=== PATIENT | female | born 1950 | race Caucasian/White ===

== ENCOUNTER 2023-03-08 08:06 | Emergency (ER) | payer MEDICARE, MEDICAID, SELFPAY ==
[2023-03-08 08:55] VITALS: BP 184/110; PULSE 109; RESP 18; TEMP 36.7; O2SAT 97
--- NOTE | 2023-03-08 09:09 | ED_ITS ---
HPI - Anxiety General: Chief Complaint: Anxiety Stated Complaint: genevieve espinosa Time Seen by Provider: 03/08/23 08:22 Source: patient Mode of arrival: ambulatory History of Present Illness: 72-year-old female presents emergency ro om awake alert and oriented states she was breathing rapidly had some nausea and vomited once earlier this morning some mild chest comfort all the symptoms have mostly resolved she just has a little bit of residual dizziness now. When she initially was seen by the triage nurse reported to be hyperventilating. Later she was drinking coffee and waiting room without any difficulty. She has no fever sweats chills. Prior to this episode she has not had any productive cough or chest discomfort. MD complaint: anxiety Symptoms: dyspnea, palpitations, extremity numbness/tingling, perioral numbness/tingling and sense of impending doom Place: home Relieving factors: nothing Exacerbating factors: nothing Associated symptoms: Reports nausea; Deny anorexia, chest pain, chills, confusion, diaphoresis, fever(s), h eadache(s), malaise, palpitations, short of breath, syncope, vomiting or weakness Review of Systems Const: Denies: fever(s), chills, malaise or diaphoresis Card: Denies: chest pain, palpitations or syncope Resp: Denies: dyspnea GI: Reports: nausea; Denies: abdominal pain or vomiting : Denies: dysuria, urinary frequency or urinary urgency Musc: Denies: neck pain or back pain Skin/Breast: Denies: rash Neuro: Denies: headache(s) or confusion Physical Exam Const: COMMON NORMALS: no acute distress GENERAL APPEARANCE: cooperative and comfortable ORIENTATION/CONSCIOUSNESS: Yes awake, Yes oriented to person, Yes oriented to place and Yes oriented to time HENMT: COMMON NORMALS: normocephalic, atraumatic and hearing grossly normal bilaterally HEAD & SCALP: normocephalic and atraumatic Resp: COMMON NORMALS: normal respiratory effort, No retractions, No use of accessory muscles and clear to auscultation bilaterally AUSCULTATION: clear to auscultation bilaterally Cardio: COMMON NORMALS: regular rate, regular rhythm and No murmurs present (Cardio) RATE: regular rate RHYTHM: regular rhythm GI: COMMON NORMALS: Soft to palpation and No hepatosplenomegaly present AUSCULTATION: Yes normoactive bowel sounds PALPATION: Yes Soft to palpation, No Tenderness to palpation present (GI), No Guarding due to palpation present (GI) and Yes No hepatosplenomegaly present Extremity: COMMON NORMALS: normal to inspection, capillary refill normal, no clubbing, cyanosis or edema, no calf tenderness and no pedal edema Neuro: SENSORIUM/ORIENTATION: Yes oriented to person, Yes oriented to place and Yes oriented to time Skin: COMMON NORMALS: no rashes or lesions noted GENERAL SKIN EXAM: no rashes or lesions noted Course Vital Signs: Vital signs: Vital Signs Temperature 98.1 F 03/08/23 08:55 Pulse Rate 109 H 03/08/23 08:55 Respiratory Rate 18 03/08/23 08:55 Blood Pressure 158/102 03/08/23 09:18 Pulse Oximetry 97 03/08/23 08:55 Oxygen Delivery Me thod Room Air 03/08/23 08:55 MDM - Anxiety Medical Decision Making Exam unremarkable. Blood pressure slightly elevated. Will discharge patient home her symptoms are resolved at this point. Return if she has further episodes. Medical Records I reviewed the patient's medical records. Lab Data I reviewed the patient's lab results. Laboratory Results Specimen Type Arterial 03/08/23 09:21 Sample Site Brachial, left 03/08/23 09:21 ABG pH 7.42 (7.35-7.45) 03/08/23 09:21 ABG pCO2 38.5 mmHg (35-45) 03/08/23 09:21 ABG pO2 74.4 mmHg (80.0-100.0) L 03/08/23 09:21 ABG PO2/FiO2 Ratio 0 03/08/23 09:21 ABG HCO3 25.0 mmol/L (22-26) 03/08/23 09:21 ABG O2 Saturation 96.4 03/08/23 09:21 ABG Base Excess 0.6 mmol/L (-2.0-2.0) 03/08/23 09:21 Rajinder Test N/a 03/08/23 09:21 A-a O2 Gradient 3.5 mmHg (5-10) L 03/08/23 09:21 Hematocrit 39.9 % (37-47) 03/08/23 09:21 Hgb O2 Saturation 95.4 % (95-100) 03/08/23 09:21 Carboxyhemoglobin 0.7 %THgb (0.4-20.1) 03/08/23 09:21 Methemoglobin 0.3 % (0.4-1.5) L 03/08/23 09:21 Total Hemoglobin 13.0 g/dL (12-16) 03/08/23 09:21 Sodium 142.0 mmol/L (131-143) 03/08/23 09:21 Potassium 3.8 mmol/L (3.5-5.0) 03/08/23 09:21 Glucose 110.0 mg/dL (70-115) 03/08/23 09:21 Ionized Calcium 1.2 mmol/L (1.1-1.4) 03/08/23 09:21 O2 Delivery Device Room air 03/08/23 09:21 FiO2 21.0 % 03/08/23 09:21 Vocal Music Teacher ID [facility] 03/08/23 09:21 No radiology studies performed this visit Discharge Plan Discharge Patient Disposition: Home Clinical Impression: Acute anxiety, Hypertension Condition: Stable Prescriptions: New amlodipine 2.5 mg tablet 2.5 mg PO DAILY Qty: 30 0RF No Action Vitamin C 500 mg Tablet 500 mg PO DAILY PRN (Reason: Cold Symptoms) Discharge Orders: Discharge ED (Routine); Ordered 03/08/23 Ordered By: Héctor Ruby Referrals: Tong Merrill MD [Family Provider] - Discharge Diet: Usual diet Discharge Activity: Resume usual activity Patient Instructions: Opioid Safety, Pain Management Activity Restrictions/Additional Instructions: Thank you for choosing [facility] for your healthcare needs today. Please realize this is an emergency room and that we are providing you with a medical screening exam and this may not be complete and all inclusive of all the testing and or work up that you may need to determine your ailment or severity of your illness. It is very important that you follow up as instructed or that you return to the Emergency Department should you have concerns or if your condition changes or worsens in any way. You were seen today after what appears to have been a mild panic attack which you self corrected. Your blood pressure was mildly elevated recommend you start on amlodipine 2.5 mg daily and follow-up with your primary care doctor within the next week. Coding Level of Care Code ED Hogshead Stripper for Gretel Sawyer
[2023-03-08 09:18] VITALS: BP 158/102
--- NOTE | 2023-03-08 09:24 | PC.PHAR ---
pt and pts states the pt takes no prescription medications states just takes vit c prn and states not taken recently
[2023-03-08 09:32] LABS: ABG PCO2 38.5 mmHg (35-45); ABG PH Result 7.42 (7.35-7.45); Alveolar-Arterial Oxygen Gradi 3.5 mmHg (5-10); Arterial Blood Gas Hematocrit 39.9 % (37-47); Base Excess ABG 0.6 mmol/L (-2.0-2.0); Blood Gas Operator Identificat AMH; Blood Gas Sample Site Brachial, left; Blood Gas Sample Type Arterial; Carboxyhemoglobin 0.7 %THgb (0.4-20.1); HGB O2 Sat 95.4 % (95-100); Ionized Calcium Level - ABG 1.2 mmol/L (1.1-1.4); Methemoglobin 0.3 % (0.4-1.5); Oxygen Device ROOM AIR; Oxygen Saturation ABG 96.4; PO2 ABG 74.4 mmHg (80.0-100.0); PO2 FiO2 Ratio Arterial Blood 0; Potassium Level - ABG 3.8 mmol/L (3.5-5.0)
== END 2023-03-08 10:19 | disposition home or self-care (01) ==
PROVIDERS: Emergency Provider Family Medicine
DX: F41.9 Anxiety disorder, unspecified (principal); I10 Essential (primary) hypertension
CPT/HCPCS: 36600; 80051; 82330; 82805; 99283

== ENCOUNTER 2023-06-25 11:21 | Inpatient (IN) | payer MEDICARE, MEDICAID, SELFPAY ==
[2023-06-25] VITALS (15 sets, daily range): BP systolic 125–141; BP diastolic 72–99; PULSE 87–117; RESP 16–22; TEMP 37.3–37.8; O2SAT 92–99; BMI 13.7
--- NOTE | 2023-06-25 11:33 | XR_ITS ---
WS: [id number] Exam: XR chest 1V portable [id number] Date/Time of Exam: 06/25/2023 11:36 AM Reason For Exam: fever No priors. The lungs are clear and fully inflated. Normal cardiomediastinal silhouette. No pleural effusions. Re gional bony elements are intact. Monitoring leads superimpose the chest. 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 Old proximal LEFT humeral fracture. IMPRESSION: 1. No acute cardiopulmonary finding.
--- NOTE | 2023-06-25 11:33 | CT_ITS ---
WS: [id number] CT ABDOMEN PELVIS TECHNIQUE: Contrast-enhanced CT of the abdomen and pelvis with coronal and sagittal reformatted image s. CLINICAL INFORMATION: fever COMPARISON: None. DLP: 360.[address] scans at [facility] use at least one of these dose optimization techniques: automated e xposure control; mA and/or kV adjustment per patient size (includes targeted exams where dose is matc hed to clinical indication); or iterative reconstruction. FINDINGS: Diffuse marked thickening with submucosal enhancement and induration involving the colon compatible w ith infectious or inflammatory colitis. This is more pronounced involving the transverse colon and RI GHT colon extending into the cecum with prominent submucosal edema. This extends to involve the dista l sigmoid and rectum. Surrounding induration in the anterior abdominal mesentery and RIGHT abdomen. N o pneumatosis or free air. No evidence of high-grade obstruction. Normal liver. Normal gallbladder. Normal portal vein and splenic vein. Normal pancreatic parenchymal enhancement. Normal spleen. Normal GE junction. Slight bibasilar atelectasis. Adrenal glands are norm al. No hydronephrosis. Bilateral renal cysts. Normal pancreatic parenchymal enhancement. Normal calib er abdominal aorta. Mild aortic calcification. Celiac and SMA appear patent. Normal portal vein and s plenic vein. Disc space narrowing worse at L5-S1. Tiny fat-containing umbilical hernia. IMPRESSION: 1. Findings of diffuse pancolitis described above worse involving the cecum and RIGHT colon and rebolledo sverse colon. Consider C. difficile colitis. Recommend follow-up to resolution. 2. No pneumatosis or free air. 3. No evidence of high-grade obstruction. 4. No other acute findings. Notified Leno Núñez MD at 06/25/2023 1:17 PM.
--- NOTE | 2023-06-25 11:35 | ECG_ITS ---
[facility] Test Date: 2023-06-25 Pat Name: Argentina Weber Department: Room: Gender: Female Student Services Vice President: : 1950 Requested By: Leno Núñez Order Number: [id number] Nimco MD: Sonia Nance M.D. Measurements Intervals [place] Rate: 104 P: 67 ND: 153 QRS: 54 QRSD: 85 T: 47 QT: 322 QTc: 425 Interpretive Statements SINUS TACHYCARDIA POSSIBLE LEFT ATRIAL ENLARGEMENT [-0.1mV P-WAVE IN V1/V2] ABNORMAL RHYTHM ECG No previous ECG available for comparison Electronically Signed On 06-25-2023 23:55:20 CDT by Sonia Nance M.D. [email or web address]
--- NOTE | 2023-06-25 11:38 | W.ED.GENADLT ---
HPI - General Adult General: Chief complaint: Nausea/Vomiting/Diarrhea Stated complaint: Hurting all over Time Seen by Provider: 06/25/23 11:22 Source: patient Mode of arrival: ambulatory Limitations: no limitations History of Present Illness: 73-year-old female states that over the last week she been having nausea and vomiting she been having some diffuse abdominal pain as well and feeling weak. States she is also had bodyaches with a subjective fever at home as well. Has had a cough denies any shortness of breath she had some mild abdominal cramping. She denies any worsening proving factors. Associated symptoms: Reports nausea and vomiting; Deny chest pain, dyspnea, headache(s) or rash Review of Systems Const: Reports: fever(s), chills, body aches and fatigue; Denies: change in appetite Eyes: Denies: blurry vision or eye discomfort ENMT: Denies: throat pain or dental pain Card: Denies: chest pain Resp: Reports: non-productive cough; Denies: dyspnea GI: Reports: abdominal pain, nausea, vomiting and diarrhea : Denies: dysuria Musc: Denies: neck pain or back pain Skin/Breast: Denies: rash Neuro: Denies: headache(s) Physical Exam Const: COMMON NORMALS: patient oriented x3 HENMT: COMMON NORMALS: normocephalic and atraumatic HEAD & SCALP: normocephalic and atraumatic Eye: COMMON NORMALS: Equal, round and reactive pupils present and EOMs intact bilaterally PUPIL: Yes Equal, round and reactive pupils present Neck/C-Spine: COMMON NORMALS: full ROM and supple Chest: COMMONS NORMALS: normal inspection of the chest Resp: COMMON NORMALS: normal respiratory effort Cardio: COMMON NORMALS: regular rate, regular rhythm and No murmurs present (Cardio) RATE: regular rate RHYTHM: regular rhythm GI: COMMON NORMALS: Normal to inspection, nondistended, normoactive bowel sounds present, Soft to palpation, non-tender and no masses PALPATION: Yes Soft to palpation Extremity: COMMON NORMALS: normal to inspection and full ROM Neuro: COMMON NORMALS: patient oriented x3, moves all extremities and no focal motor deficits Psych: COMMON NORMALS: mental status grossly normal, Normal thought process present and cooperative THOUGHT PROCESS: Normal thought process present Skin: COMMON NORMALS: no rashes or lesions noted and no wounds GENERAL SKIN EXAM: no rashes or lesions noted Course Vital Signs: Vital signs: Vital Signs Temperature 100.0 F H 06/25/23 11:23 Pulse Rate 117 H 06/25/23 11:30 Respiratory Rate 19 H 06/25/23 11:30 Blood Pressure 130/77 06/25/23 12:00 Pulse Oximetry 95 06/25/23 11:30 Oxygen Delivery Me thod Room Air 06/25/23 11:23 MDM - General Adult Medical Decision Making Patient presents here with vomiting diarrhea along with generalized weakness CT shows a colitis she has a mild white count and fever here lactates normal we will admit her for IV fluids on antibiotics. Medical Records I reviewed the patient's medical records. Lab Data I reviewed the patient's lab results. 06/25/23 11:30 06/25/23 11:30 Laboratory Results WBC 12.67 10^3/uL (3.29-11.43) H 06/25/23 11:30 RBC 4.03 10^6/uL (3.85-5.65) 06/25/23 11:30 Hgb 12.00 g/dL (11.27-16.99) 06/25/23 11:30 Hct 36.2 % (36-47) 06/25/23 11:30 MCV 89.8 fl (85-98) 06/25/23 11:30 MCH 29.8 pg (27-33) 06/25/23 11:30 MCHC 33.1 g/dL (30-55) 06/25/23 11:30 RDW 12.9 % (12.1-15.1) 06/25/23 11:30 Plt Count 219 10^3/cmm (157-399) 06/25/23 11:30 MPV 9.3 fL (7.4-10.4) 06/25/23 11:30 Neut % (Auto) 91.8 % 06/25/23 11:30 Lymph % (Auto) 3.1 % 06/25/23 11:30 [place] % (Auto) 4.3 % 06/25/23 11:30 Eos % (Auto) 0.2 % 06/25/23 11:30 Baso % (Auto) 0.3 % 06/25/23 11:30 Neut # (Auto) 11.64 10^3/uL (1.8-7.7) H 06/25/23 11:30 Lymph # (Auto) 0.4 10^3/uL (0.8-4.8) L 06/25/23 11:30 [place] # (Auto) 0.5 10^3/uL (0.2-0.9) 06/25/23 11:30 Eos # (Auto) 0.0 10^3/uL (0.0-0.8) 06/25/23 11:30 Baso # (Auto) 0.0 10^3/uL (0.0-0.1) 06/25/23 11:30 Nucleated RBC % (auto) 0 % 06/25/23 11:30 Nucleated RBCs # 0.0 /100WBC 06/25/23 11:30 Sodium 138 mmol/L (136-145) 06/25/23 11:30 Potassium 4.1 mmol/L (3.5-5.1) 06/25/23 11:30 Chloride 104 mmol/L (98-107) 06/25/23 11:30 Carbon Dioxide 24 mmol/L (22-29) 06/25/23 11:30 Anion Gap 14.1 (5-19) 06/25/23 11:30 BUN 7 mg/dL (8-23) L 06/25/23 11:30 Creatinine 0.6 mg/dL (0.5-0.9) 06/25/23 11:30 GFR Calculation Not Reportable 06/25/23 11:30 Glucose 101 mg/dL (65-115) 06/25/23 11:30 Calculated Osmolality 284 mOsm/kg (285-295) L 06/25/23 11:30 Lactic Acid 0.8 mmol/L (0.5-2.2) 06/25/23 11:30 Calcium 8.6 mg/dL (8.5-10.5) 06/25/23 11:30 Magnesium 1.7 mg/dL (1.7-2.3) 06/25/23 11:30 Total Bilirubin 0.3 mg/dL (0.15-1.2) 06/25/23 11:30 AST 17 U/L (0-32) 06/25/23 11:30 ALT 9 U/L (0-33) 06/25/23 11:30 Alkaline Phosphatase 43 U/L (35-105) 06/25/23 11:30 Total Protein 7.3 g/dL (6.6-8.7) 06/25/23 11:30 Albumin 3.7 g/dL (3.5-5.2) 06/25/23 11:30 Globulin 3.6 g/dL (1.3-4.6) 06/25/23 11:30 Urine Color Yellow (Yellow) 06/25/23 12:00 Urine Appearance Sl hazy (CLEAR) A 06/25/23 12:00 Urine pH 5 (5-7) 06/25/23 12:00 Ur Specific [place] 1.020 (1.005-1.030) 06/25/23 12:00 Urine Protein Neg (Negative) 06/25/23 12:00 Urine Glucose (UA) Norm (Normal) 06/25/23 12:00 Urine Ketones 1+ (Negative) H 06/25/23 12:00 Urine Blood Neg (Negative) 06/25/23 12:00 Urine Nitrate Negative (Negative) 06/25/23 12:00 Urine Bilirubin Neg (Negative) 06/25/23 12:00 Urine Urobilinogen Norm mg/dL (Negative) 06/25/23 12:00 Ur Leukocyte Esterase 2+ (Negative) H 06/25/23 12:00 Urine RBC 0-4 /hpf (0-2) H 06/25/23 12:00 Urine WBC 15-25 /hpf (0-5) H 06/25/23 12:00 Ur Squamous Epith Cells 0-4 /hpf (0-5) H 06/25/23 12:00 Calcium Oxalate Crystal 0-4 /hpf H 06/25/23 12:00 Amorphous Sediment Not Reportable 06/25/23 12:00 Urine Bacteria Trace /hpf (NONE) 06/25/23 12:00 Urine Mucus 1+ /hpf 06/25/23 12:00 Influenza Type A Ag negative (Negative) 06/25/23 11:41 Influenza Type B Ag negative (Negative) 06/25/23 11:41 SARS-CoV-2 Ag (Rapid) negative (Negative) 06/25/23 11:41 All radiology interpretation(s) finalized by discharge EKG Data EKG 1: I personally reviewed and interpreted this EKG as follows: EKG interpretation date: 06/25/23 EKG interpretation time: 12:13 Interpretation: sinus tach hr104 no st or t wave abnormalities qrs 85 qtc 383 Discharge Plan Discharge Patient Disposition: Admitted As Inpatient Clinical Impression: Colitis, Weakness Condition: Stable Prescriptions: No Action amlodipine 5 mg tablet 5 mg PO DAILY Qty: 30 3RF cetirizine [Zyrtec] 10 mg tablet 10 mg PO DAILY PRN (Reason: allergy symptoms) Qty: 30 2RF ibuprofen 800 mg tablet 800 mg PO TID PRN (Reason: pain) 30 Days Qty: 90 0RF meloxicam 15 mg tablet 15 mg PO DAILY Qty: 30 3RF Hold Instructions: Home Medication placed on hold at Doctor's office buspirone 5 mg tablet 5 mg PO BID Qty: 60 2RF ascorbic acid (vitamin C) [Vitamin C] 500 mg Tablet 500 mg PO DAILY PRN (Reason: Cold Symptoms) trazodone 50 mg tablet 50 mg PO QPM Zoloft 50 mg tablet 50 mg PO DAILY Referrals: Araceli Rubin MD [Primary Care Provider] - Coding Level of Care Code ED Property Disposal Manager for Gretel Sawyer
[2023-06-25] MEDS: acetaminophen 500 mg Tablet 1000 MG PO (11:42)
[2023-06-25 11:50] LABS: Basophils % 0.3 %; Eosinophils % 0.2 %; Hematocrit 36.2 % (36-47); Lymphocytes # 0.4 10^3/uL (0.8-4.8); Lymphocytes % 3.1 %; Mean Corpuscular HGB Conc 33.1 g/dL (30-55); Mean Corpuscular Hemoglobin 29.8 pg (27-33); Mean Corpuscular Volume 89.8 fl (85-98); Mean Platelet Volume 9.3 fL (7.4-10.4); Monocytes # 0.5 10^3/uL (0.2-0.9); Monocytes % 4.3 %; Neutrophils # 11.64 10^3/uL (1.8-7.7); Neutrophils % 91.8 %; Nucleated Red Blood Cells % 0 %; Platelet Count 219 10^3/cmm (157-399); Red Blood Count 4.03 10^6/uL (3.85-5.65); Red Cell Distribution Width 12.9 % (12.1-15.1); White Blood Count 12.67 10^3/uL (3.29-11.43)
[2023-06-25 12:02] LABS: Alanine Aminotransferase 9 U/L (0-33); Albumin Level 3.7 g/dL (3.5-5.2); Alkaline Phosphatase 43 U/L (35-105); Anion Gap 14.1 (5-19); Aspartate Amino Transferase 17 U/L (0-32); Blood Urea Nitrogen 7 mg/dL (8-23); Calcium 8.6 mg/dL (8.5-10.5); Carbon Dioxide 24 mmol/L (22-29); Chloride 104 mmol/L (98-107); Globulin 3.6 g/dL (1.3-4.6); Glucose 101 mg/dL (65-115); Lactic Sepsis W/Reflex 0.8 mmol/L (0.5-2.2); Magnesium 1.7 mg/dL (1.7-2.3); Osmolality Calculated 284 mOsm/kg (285-295); Potassium 4.1 mmol/L (3.5-5.1); Sodium 138 mmol/L (136-145); Total Bilirubin 0.3 mg/dL (0.15-1.2); Total Protein 7.3 g/dL (6.6-8.7)
[2023-06-25] MEDS: sodium chloride 0.9% 1,000 ML 999 ML IV ×2 (12:03→13:35)
[2023-06-25 12:09] LABS: Influenza A by IFA negative (Negative); Influenza B by IFA negative (Negative)
[2023-06-25 12:10] LABS: SARS Covid-2 Antigen negative (Negative)
[2023-06-25 12:19] LABS: Add Urine Microscopic? YES; Bilirubin Urine Neg (Negative); Blood Urine Neg (Negative); Glucose Urine UA Norm (Normal); Ketones Urine 1+ (Negative); Leukocyte Esterase Urine 2+ (Negative); Nitrate Urine Negative (Negative); Protein Urine Neg (Negative); Urine Appearance SL Hazy (CLEAR); Urine Color Yellow (Yellow); Urobilinogen Urine Norm (Negative); pH Urine 5 (5-7)
[2023-06-25 12:26] LABS: Bacteria Urine TRACE /hpf; Calcium Oxalate Crystals Urine 0-4 /hpf; Mucus Urine 1+ /hpf; RBC Urine 0-4 /hpf (0-2); Squamous Epithelial Cell Urine 0-4 /hpf (0-5); WBC Urine 15-25 /hpf (0-5)
[2023-06-25 12:27] LABS: Add Urine Culture? Yes
[2023-06-25] MEDS: iohexol 350 mg/mL 500 mL Btl (per mL) IV (12:40)
[2023-06-25] MEDS: metroNIDAZOLE IV 500 MG/100 ML PREMIX 100 MG IV ×2 (13:33→20:29)
[2023-06-25] MEDS: ciprofloxacin 400 MG/200 ML PREMIX 200 MG IV (14:25)
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
[2023-06-25] MEDS: morphine 4 mg/mL SDV 1 mL IVP (15:53)
[2023-06-25] MEDS: trazodone 50 mg Tablet PO (18:23)
[2023-06-25] MEDS: pantoprazole DR 40 mg Tablet PO (18:23)
[2023-06-25] MEDS: lactated ringers 1,000 ML 100 ML IV (18:23)
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
[2023-06-26] VITALS (7 sets, daily range): BP systolic 101–138; BP diastolic 58–78; PULSE 75–103; RESP 16–18; TEMP 36.7–37.2; O2SAT 89–99
[2023-06-26] MEDS: ciprofloxacin 400 MG/200 ML PREMIX 200 MG IV ×2 (00:38→12:43)
[2023-06-26] MEDS: lactated ringers 1,000 ML 100 ML IV ×2 (04:49→15:22)
[2023-06-26] MEDS: metroNIDAZOLE IV 500 MG/100 ML PREMIX 100 MG IV ×3 (04:50→21:07)
[2023-06-26 05:35] LABS: Basophils % 0.4 %; Eosinophils % 0.2 %; Hematocrit 31.2 % (36-47); Lymphocytes # 0.5 10^3/uL (0.8-4.8); Mean Corpuscular HGB Conc 32.1 g/dL (30-55); Mean Corpuscular Hemoglobin 29.3 pg (27-33); Mean Corpuscular Volume 91.5 fl (85-98); Mean Platelet Volume 9.6 fL (7.4-10.4); Monocytes # 0.5 10^3/uL (0.2-0.9); Monocytes % 4.9 %; Neutrophils # 8.73 10^3/uL (1.8-7.7); Neutrophils % 89.1 %; Nucleated Red Blood Cells % 0 %; Platelet Count 169 10^3/cmm (157-399); Red Blood Count 3.41 10^6/uL (3.85-5.65); Red Cell Distribution Width 13.2 % (12.1-15.1)
[2023-06-26 05:54] LABS: Alanine Aminotransferase 8 U/L (0-33); Albumin Level 2.9 g/dL (3.5-5.2); Alkaline Phosphatase 54 U/L (35-105); Anion Gap 11.8 (5-19); Aspartate Amino Transferase 16 U/L (0-32); Blood Urea Nitrogen 6 mg/dL (8-23); Calcium 8.2 mg/dL (8.5-10.5); Carbon Dioxide 23 mmol/L (22-29); Chloride 107 mmol/L (98-107); Creatinine Clr Calc Pharmacy 55.9837; Globulin 2.8 g/dL (1.3-4.6); Glucose 102 mg/dL (65-115); Magnesium 1.6 mg/dL (1.7-2.3); Osmolality Calculated 284 mOsm/kg (285-295); Potassium 3.8 mmol/L (3.5-5.1); Sodium 138 mmol/L (136-145); Total Bilirubin 0.2 mg/dL (0.15-1.2); Total Protein 5.7 g/dL (6.6-8.7)
[2023-06-26] MEDS: sertraline 50 mg Tablet PO (09:17)
[2023-06-26] MEDS: amlodipine 5 mg Tablet PO (09:17)
[2023-06-26] MEDS: pantoprazole DR 40 mg Tablet PO (09:17)
[2023-06-26] MEDS: BuSPIRONE 10 mg Tablet 5 MG PO ×2 (09:17→17:13)
[2023-06-26] MEDS: trazodone 50 mg Tablet PO (17:13)
[2023-06-26 19:56] LABS: C.Diff PCR (Lab) POSITIVE (Negative); Clostridioides Difficile Toxin NEGATIVE (Negative)
[2023-06-26] MEDS: vancomycin 125 mg Capsule PO (21:06)
[2023-06-26] MEDS: acetaminophen 325 mg Tablet 650 MG PO (21:07)
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
[2023-06-27] MEDS: magnesium sulfate premix 2 GM/50 ML PIGGYBACK IV (01:11)
[2023-06-27] MEDS: ciprofloxacin 400 MG/200 ML PREMIX 200 MG IV (02:06)
[2023-06-27] MEDS: lactated ringers 1,000 ML 100 ML IV (02:07)
[2023-06-27 04:00] VITALS: BP 109/67; PULSE 90; RESP 16; TEMP 37; O2SAT 94
[2023-06-27] MEDS: metroNIDAZOLE IV 500 MG/100 ML PREMIX 100 MG IV (05:24)
[2023-06-27 05:39] LABS: Basophils % 0.3 %; Eosinophils # 0.1 10^3/uL (0.0-0.8); Lymphocytes # 0.6 10^3/uL (0.8-4.8); Lymphocytes % 9.6 %; Mean Corpuscular HGB Conc 32.4 g/dL (30-55); Mean Corpuscular Hemoglobin 29.1 pg (27-33); Mean Corpuscular Volume 89.8 fl (85-98); Monocytes # 0.4 10^3/uL (0.2-0.9); Monocytes % 6.4 %; Neutrophils # 5.33 10^3/uL (1.8-7.7); Neutrophils % 81.2 %; Nucleated Red Blood Cells % 0 %; Platelet Count 160 10^3/cmm (157-399); Red Blood Count 3.23 10^6/uL (3.85-5.65); Red Cell Distribution Width 12.8 % (12.1-15.1); White Blood Count 6.56 10^3/uL (3.29-11.43)
[2023-06-27 05:58] LABS: Alanine Aminotransferase 7 U/L (0-33); Albumin Level 2.9 g/dL (3.5-5.2); Alkaline Phosphatase 29 U/L (35-105); Anion Gap 11.2 (5-19); Aspartate Amino Transferase 15 U/L (0-32); Blood Urea Nitrogen 2 mg/dL (8-23); Calcium 7.9 mg/dL (8.5-10.5); Carbon Dioxide 24 mmol/L (22-29); Chloride 108 mmol/L (98-107); Creatinine Clr Calc Pharmacy 56.4433; Globulin 2.8 g/dL (1.3-4.6); Glucose 105 mg/dL (65-115); Osmolality Calculated 287 mOsm/kg (285-295); Potassium 3.2 mmol/L (3.5-5.1); Sodium 140 mmol/L (136-145); Total Bilirubin 0.2 mg/dL (0.15-1.2); Total Protein 5.7 g/dL (6.6-8.7)
[2023-06-27 08:00] VITALS: BP 127/65; PULSE 82; RESP 17; TEMP 36.7; O2SAT 96
[2023-06-27] MEDS: sertraline 50 mg Tablet PO (08:53)
[2023-06-27] MEDS: BuSPIRONE 10 mg Tablet 5 MG PO (08:53)
[2023-06-27] MEDS: pantoprazole DR 40 mg Tablet PO (08:53)
[2023-06-27] MEDS: vancomycin 125 mg Capsule PO (08:53)
[2023-06-27] MEDS: amlodipine 5 mg Tablet PO (08:53)
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
--- NOTE | 2023-06-27 11:00 | PC.SOCIAL ---
IMM Update pg 2 of IMM updated and reviewed w/ patient. Copy provided and copy dated, initialed and placed in chart.
[2023-06-27 11:18] VITALS: BP 127/65; PULSE 82; RESP 17; TEMP 36.7; O2SAT 96
== END 2023-06-27 11:19 | disposition home or self-care (01) | DRG 372 ==
LOC: ER 13:41 → MEDSURG 16:27
PROVIDERS: Admitting Provider Internal Medicine; Emergency Provider Emergency Medicine; PCP Family Medicine; Visit Provider Internal Medicine
DX: A04.72 Enterocolitis due to Clostridium difficile, not specified as recurrent (principal); N39.0 Urinary tract infection, site not specified; E83.42 Hypomagnesemia; I10 Essential (primary) hypertension; M19.90 Unspecified osteoarthritis, unspecified site; F32.A Depression, unspecified; F41.9 Anxiety disorder, unspecified; Y04.2XXA Assault by strike against or bumped into by another person, initial encounter; S00.31XA Abrasion of nose, initial encounter
CPT/HCPCS: 36415; 71045; 74177; 80053; 81001; 82274; 83605; 83630; 83735; 84100; 85025; 87040; 87045; 87077; 87086; 87177; 87186; 87209; 87324; 87426; 87427; 87449; 87493; 87804; 93005; 96365; 96367; 96375; 99285; J0744; J2270; J3475; J3490; J7030; J7120; Q9967